=== PATIENT | male | born 1940 | race Hispanic/Latino ===

== ENCOUNTER 2018-11-11 15:28 | Inpatient (IN) | payer MEDICARE, OTHER ==
--- NOTE | 2018-11-11 15:35 | ED PDOC ---
Arrival/HPI - General Chief Complaint: Altered Mental Status Historian: Patient, Spouse, EMS - History of Present Illness Narrative History of Present Illness (Text): 11/11/18 15:36 78M w/ h/o CVA presenting to the Emergency Room with altered mental status for the 6 past hours. Per patient's , patient was last seen at baseline 2 hours prior when his noted he had difficulty with word findings and identifying specific family members. Due to his similar presentation prior, she immediately called EMS who brought him to the Emergency Room. PMD: Dr. Sindhu Rodriguez more complete history was unable to be performed due to the patient's clinical condition Past Medical History - Provider Review Nursing Documentation Reviewed: Yes - Travel History Have you recently traveled outside [place] w/in the past 3 mons?: No Family/Social History - Physician Review Nursing Documentation Reviewed: Yes Family/Social History: CVA/TIA Allergies/Home Meds Allergies/Adverse Reactions: Allergies No Known Allergies Allergy (Verified 11/11/18 15:29) Review of Systems - Physician Review All systems were reviewed & negative as marked: Yes - Review of Systems Systems not reviewed;Unavailable: Altered Mental Status Physical Exam Vital Signs Reviewed: Yes Temperature: Afebrile Blood Pressure: Normal Pulse: Regular Respiratory Rate: Normal Appearance: Positive for: Well-Appearing, Non-Toxic, Comfortable Mental Status: Positive for: Alert and Oriented X 3 Finger Stick Blood Glucose: 184 - Systems Exam Head: Present: Atraumatic, Normocephalic Pupils: Present: PERRL Extroacular Muscles: Present: EOMI Conjunctiva: Present: Normal Mouth: Present: Moist Mucous Membranes Neck: Present: Normal Range of Motion Respiratory/Chest: Present: Clear to Auscultation, Good Air Exchange. No: Respiratory Distress Cardiovascular: Present: Regular Rate and Rhythm, Normal S1, S2 Abdomen: Present: Normal Bowel Sounds. No: Tenderness Medical Decision Making ED Course and Treatment: 11/11/18 15:53 Impression 78M w/ h/o CVA presenting to the Emergency room with symptoms of word finding worrisome for CVA NIHSS: 1 tPA eligibility: No Plan --Labs --IV Fluids --Neurology Consult --CTH --EKG --CXR --Ativan --Reassess & disposition Progress Notes 11/11/18 15:59 Code Stroke called. Discussion of case with Dr. Berrios(neurology) who requests an update once CTH has been performed. 11/11/18 16:07 Patient noted to urinate on himself, blinking with minimal response to verbal commands. Ativan given. Patient noted to be diaphoretic and turning towards his right side. Keppra ordered. CTH negative for intracranial bleeding. Patient a 11/11/18 17:[address] Manley(medical service) for a second time. Patient noted to be more alert and responsive. 11/11/18 17:[address] Manley who accepts patient onto her service. - Lab Interpretations Lab Results: 11/11/18 15:57 11/11/18 15:57 Lab Results 11/11/18 15:57: Blood Type Pending, Antibody Screen Pending, BBK History Checked No verified bt 11/11/18 15:57: Sodium 138, Potassium 4.5, Chloride 104, Carbon Dioxide 27, Anion Gap 12, BUN 16, Creatinine 0.6 L, Est GFR ( Amer) > 60, Est GFR (Non-Af Amer) > 60, Random Glucose 112 H, Calcium 9.0, Total Bilirubin 0.7, AST 41, ALT 40, Alkaline Phosphatase 68, Troponin I 0.05, NT-Pro-B Natriuret Pep 1070 H, Total Protein 7.3, Albumin 4.1, Globulin 3.3, Albumin/Globulin Ratio 1.3, Triglycerides 80, Cholesterol 117 L, LDL Cholesterol Direct 81, HDL Cholesterol 27 L 11/11/18 15:57: PT 13.6 H, INR 1.23, APTT 30.8 11/11/18 15:57: WBC 8.2, RBC 5.24, Hgb 10.2 L, Hct 32.7 L, MCV 62.4 L, MCH 19.5 L, MCHC 31.2, RDW 16.5 H, Plt Count 188, Neut % (Auto) 73.7 H, Lymph % (Auto) 19.2 L, [place] % (Auto) 6.3 H, Eos % (Auto) 0.6 L, Baso % (Auto) 0.2, Lymph # (Auto) 1.6, [place] # (Auto) 0.5, Eos # (Auto) 0.1, Baso # (Auto) 0.02, Absolute Neuts (auto) 6.03 I have reviewed the lab results: Yes - RAD Interpretation Radiology Orders: 11/11/18 15:30 HEAD W/O (CODE STROKE) [CT] Stat HEAD W/O (CODE STROKE) [CT] Stat CHEST PORTABLE [RAD] Stat - Medication Orders Current Medication Orders: Sodium Chloride (Sodium Chloride 0.9%) 1,000 mls @ 100 mls/hr IV .Q10H REID rTPA Inclusion/Exclusion - Refusal of Treatment Patient Refused Treatment: No - Inclusion Criteria for Altepase All of the below criteria for inclusion were reviewed: Yes Patient is 18 years or Older: Yes The Clinical Diagnosis of Ischemic Stroke That is Causing a Potentially Disabling Neurological Deficit: No Time of Onset is Well Established to be Less Than 270 Minute Before Treatment Would Begin: No Risk/Benefit Discussed With Patient/Family Member Present: Yes NIHSS Stroke Scale 3 - Date/Time Evaluation Performed Date Performed: 11/11/18 Time Performed: 15:30 When Was NIHSS Performed: Baseline - How Severe is the Stroke Level of Consciousness: 0=Alert LOC to Questions: 0=Both comments correct LOC to commands: 0=Obeys both correctly Best Gaze: 0=Normal Visual: 0=No visual loss Facial: 0=Normal Motor Arm - Left: 0=No drift Motor Arm - Right: 0=No drift Motor Leg - Left: 0=No drift Motor Leg - Right: 0=No drift Limb Ataxia: 0=Absent Sensory: 0=Normal Best Language: 1=Mild to moderate aphasia Dysarthia: 0=Normal articulation Extinction & Inattention (Neglect): 0=Normal, no object Score: 1 Disposition/Present on Arrival - Disposition Referrals: Montse Manley MD [Primary Care Provider] - Follow up with primary Forms: [employer] (Croatian)
[2018-11-11 15:50] VITALS: BMI 37.4
--- NOTE | 2018-11-11 15:50 | CT ---
Date of service: 11/11/2018 PROCEDURE: CT HEAD WITHOUT CONTRAST. HISTORY: code stroke COMPARISON: None available. TECHNIQUE: Axial computed tomography images were obtained through the head/brain without intravenous contrast. Radiation dose: Total exam DLP = 962.22 mGy-cm. This CT exam was performed using one or more of the following dose reduction techniques: Automated exposure control, adjustment of the mA and/or kV according to patient size, and/or use of iterative reconstruction technique. FINDINGS: HEMORRHAGE: No intracranial hemorrhage. BRAIN: No mass effect or edema. Mild atrophy. Mild chronic microvascular changes. VENTRICLES: Unremarkable. No hydrocephalus. CALVARIUM: Unremarkable. PARANASAL SINUSES: Unremarkable as visualized. No significant inflammatory changes. MASTOID AIR CELLS: Unremarkable as visualized. No inflammatory changes. OTHER FINDINGS: None. IMPRESSION: No acute intracranial findings
[2018-11-11 16:03] LABS: BASO # 0.02 K/mm3 (0.0-2.0); BASO % 0.2 % (0.0-3.0); EOS # 0.1 (0.0-0.7); EOS % 0.6 % (1.5-5.0); HEMOGLOBIN 10.2 g/dL (14.0-18.0); LYMPH # 1.6 (1.2-3.4); LYMPH % 19.2 % (22.0-35.0); MEAN CELL VOLUME 62.4 fl (80.0-105.0); MEAN CORPUSCULAR HEMOGLOBIN 19.5 pg (25.0-35.0); MEAN CORPUSCULAR HGB CONC 31.2 g/dl (31.0-37.0); MONO # 0.5 (0.1-0.6); MONO % 6.3 % (1.0-6.0); PLATELET COUNT 188 10^3/uL (120.0-450.0); RBC 5.24 10^6/uL (3.5-6.1); RED CELL DISTRIBUTION WIDTH 16.5 % (11.5-14.5); WHITE BLOOD COUNT 8.2 10^3/uL (4.5-11.0)
[2018-11-11 16:09] LABS: ALB/GLOB RATIO 1.3 (1.1-1.8); ALBUMIN 4.1 g/dL (3.0-4.8); ALT/SGPT 40 U/L (7-56); AST/SGOT 41 U/L (17-59); BLOOD UREA NITROGEN 16 mg/dL (7-21); GFR NON-AFRICAN AMERICAN > 60; HDL CHOLESTEROL 27 mg/dL (29-60)
[2018-11-11] MEDS ORDERED: LEVETIRACETAM IVPB ONE (16:09)
[2018-11-11] MEDS ORDERED: SODIUM CHLORIDE 0.9% IVPB ONE (16:09)
[2018-11-11 16:19] LABS: INR 1.23; PARTIAL THROMBOPLASTIN TIME 30.8 Seconds (26.9-38.3); PROTHROMBIN TIME 13.6 SECONDS (9.4-12.5)
[2018-11-11 16:20] LABS: B-TYPE NATRIURETIC PEPTIDE 1070 pg/mL (0-450); LDL CHOLESTEROL 81 mg/dL (0-129); TROPONIN I 0.05 ng/mL
[2018-11-11] MEDS: Sodium Chloride 0.9% 1,000 ML IV SCH (16:23)
--- NOTE | 2018-11-11 16:46 | RAD ---
Date of service: 11/11/2018 HISTORY: Code Stroke COMPARISON: No prior. FINDINGS: LUNGS: No active pulmonary disease. PLEURA: No significant pleural effusion identified, no pneumothorax apparent. CARDIOVASCULAR: No atherosclerotic calcification present No radiographic findings to suggest acute or significant cardiovascular disease. Incidental Finding(s): Postoperative changes related to sternotomy. OSSEOUS STRUCTURES: No significant abnormalities. VISUALIZED UPPER ABDOMEN: Normal. OTHER FINDINGS: None. IMPRESSION: No active disease.
--- NOTE | 2018-11-11 19:30 | CARD ---
APPROVED REPORT Date of service: 11/11/2018 EKG Measurement Heart [id number] <Conclusion> Sinus bradycardia Left axis deviation Incomplete right bundle branch block Voltage criteria for left ventricular hypertrophy Abnormal ECG
[2018-11-12] MEDS: Sodium Chloride 0.9% 1,000 ML IV SCH ×3 (09:13→12:10)
[2018-11-12] MEDS: levETIRAcetam 500mg IVPB 500 MG/100 ML BAG IV SCH ×2 (09:15→22:19)
[2018-11-12 10:56] LABS: IRON 65 ug/dL (45-180)
[2018-11-12 11:05] LABS: % IRON SATURATION 23 % (20-55); TOTAL IRON BINDING CAPACITY 281 ug/dL (261-462)
[2018-11-12 17:32] LABS: FOLATE > 20.0 ng/mL
--- NOTE | 2018-11-13 00:18 | CP.PCM.CON ---
History of Present Illness - History of Present Illness History of Present Illness: Neurology consult dictated. In brief, Mr Siegel is a 78 yr old male who presented with a spell of confusion last night, and was not tpa candidate due to low NIH score and complete resolution of symptoms. His NIHSS is 0 now, with no other deficits save dementia. I believe he may have had a seizure. I will recommend IV depakote 1000 mg now and 500 mg IV bid. MRI Brain without nancy He can also obtain routine EEG. Thank you Dr. dexter Neurology Past Patient History - Past Social History Smoking Status: Smoker Currrent Status Unknown - CARDIAC Hx Cardiac Disorders: Yes Hx Hypertension: Yes - NEUROLOGICAL Hx Neurological Disorder: Yes HX Cerebrovascular Accident: Yes - MUSCULOSKELETAL/RHEUMATOLOGICAL Hx Falls: No - PSYCHIATRIC Hx Substance Use: Yes (Marijuana) - SURGICAL HISTORY Hx Surgeries: Yes Hx Musculoskeletal Surgery: Yes (right hip replacement) - ANESTHESIA Hx Anesthesia: Yes Hx Anesthesia Reactions: No Hx Malignant Hyperthermia: No Meds Allergies/Adverse Reactions: Allergies Allergy/AdvReac Type Severity Reaction Status Date / Time No Known Allergies Allergy Verified 11/11/18 15:29 - Medications Medications: Current Medications Famotidine (Pepcid) 40 mg PO HS [facility] Last Admin: 11/12/18 22:19 Dose: 40 mg Hydralazine HCl (Apresoline) 25 mg PO QID PRN PRN Reason: elevated blood pressure Sodium Chloride (Sodium Chloride 0.9%) 1,000 mls @ 100 mls/hr IV .Q10H [facility] Last Admin: 11/12/18 12:10 Dose: Not Given Levetiracetam (Keppra 500mg Ivpb) 500 mg in 100 mls @ 400 mls/hr IV Q12 [facility] Last Admin: 11/12/18 22:19 Dose: 400 mls/hr Results - Vital Signs Recent Vital Signs: Last Vital Signs Temp 98.2 F 11/12/18 17:42 Pulse 50 L 11/12/18 22:00 Resp 20 11/12/18 17:42 BP 159/87 H 11/12/18 17:42 Pulse Ox 98 11/12/18 06:00 - Labs Result Diagrams: 11/11/18 15:57 11/11/18 15:57 Labs: Laboratory Results - last 24 hr 11/12/18 11/12/18 11/12/18 10:30 10:30 13:34 POC Glucose (mg/dL) 201 H Iron 65 TIBC 281 % Saturation 23 Ferritin 100.0 Vitamin B12 676 Folate > 20.0 11/12/18 11/12/18 16:24 21:22 POC Glucose (mg/dL) 127 H 134 H Iron TIBC % Saturation Ferritin Vitamin B12 Folate
[2018-11-13] MEDS: Sodium Chloride 0.9% 1,000 ML IV SCH (06:34)
--- NOTE | 2018-11-13 08:54 | HP ---
DATE OF EXAM: 11/12/2018 CHIEF COMPLAINT: Altered mental status. HISTORY OF PRESENT ILLNESS: A 78-year-old male who came in with change in mental status. PAST MEDICAL HISTORY: He has a past medical history of CVA, hypertension, obesity, a seizure history, and chronic anemia. SOCIAL HISTORY: The patient lives with his at home. Denies smoking. Denies alcohol abuse. Tired. HOME MEDICATIONS: Home medications were reviewed by me. REVIEW OF SYSTEMS: I saw the patient today at bedside. He is alert. He denies chest pain, shortness of breath, abdominal pain, hematuria, hematochezia, fevers, or chills. He reports feeling lethargic. Denies dizziness. ALLERGIES: THE PATIENT HAS NO KNOWN ALLERGIES. PHYSICAL EXAMINATION VITAL SIGNS: Temperature 97.8, pulse rate 61, blood pressure 153/89, respiratory rate 20, saturating at 98% on nasal cannula. HEENT: Normocephalic and atraumatic. PERRLA. Mucous membranes moist. NECK: Supple. No thyromegaly. Normal inspection. RESPIRATORY: Clear to auscultation. No wheeze. No rhonchi. CARDIOVASCULAR: S1 and S2. No JVD. ABDOMEN: Soft and distended. No organomegaly. SKIN: Intact. EXTREMITIES: No edema. NEUROLOGIC: Alert and oriented x3. No cognitive deficits. Cranial nerves II through XII are intact. MEDICATIONS: The patient continues on Pepcid, Keppra 500 mg IV piggyback. LABORATORY DATA: On 11/11/2018; white blood cell 8.2, hemoglobin 10.2, hematocrit 32.7, and platelet count 188. Sodium 138, potassium 12.5, BUN 16, creatinine 0.6, GFR over 60, hemoglobin A1c is 6.1. BNP x7 days; triglycerides 80, cholesterol 117. Negative troponin x1. ASSESSMENT AND PLAN: This is a 78-year-old male who was seen in the office with altered mental status, has , hypertension, obesity, and chronic anemia. The patient continues on Pepcid, Keppra. The patient is continued on Keppra 500 mg by intravenous route, was seen Dr. Berrios, Neurologist. The patient continues on Keppra 500 mg intravenous piggyback. Blood pressure today 163/89 at 12 p.m., at 6 a.m. 131/70. We will consult Cardiology for fluctuation in blood pressure. We will order hydralazine 75 mg for blood pressure over 140/90. We will also order a Keppra level for a.m. We will followup. All above noted , agreed with route deliverer treatment , will f/u education done . will f/u Ricco Garcia APN Montse Manley MD HUY
[2018-11-13] MEDS: levETIRAcetam 500mg IVPB 500 MG/100 ML BAG IV SCH ×2 (10:06→21:19)
--- NOTE | 2018-11-13 10:49 | MRI ---
Date of service: 11/12/2018 PROCEDURE: MRI BRAIN WITHOUT CONTRAST HISTORY: stroke COMPARISON: None available. TECHNIQUE: Multiplanar, multisequence MR images of the brain were obtained without intravenous contrast enhancement. FINDINGS: HEMORRHAGE: None DWI: No evidence of an acute or early subacute infarction. BRAIN PARENCHYMA: No mass effect or edema. Minimal chronic microvascular changes. Mild atrophy. VENTRICLES: Unremarkable. No hydrocephalus. CRANIUM: Unremarkable. ORBITS: Grossly unremarkable. PARANASAL SINUSES/MASTOIDS: Mild mucosal thickening in the sphenoid and maxillary sinuses VASCULAR SYSTEM: Skull base flow voids intact. OTHER FINDINGS: The report concurs with the preliminary [facility] report IMPRESSION: Unremarkable non contrast enhanced MRI of the brain.
--- NOTE | 2018-11-13 12:20 | CP.PCM.PCO ---
Physician Communication Note - Physician Communication Note Physician Communication Note: PT eval pending
--- NOTE | 2018-11-13 13:03 | CP.PCM.PCO ---
Physician Communication Note - Physician Communication Note Physician Communication Note: cardiology consult pending
[2018-11-13] MEDS: Insulin Lispro (humaLOG) LOW Coverage SC SCH ×2 (17:34→22:00)
--- NOTE | 2018-11-13 18:21 | PCM.FALL ---
Post Fall Progress Note - Post Fall Exam Vital Sign: Temp Pulse Resp BP Pulse Ox 98.8 F 63 19 135/68 96 11/13/18 17:44 11/13/18 17:49 11/13/18 17:44 11/13/18 17:44 11/13/18 17:44
--- NOTE | 2018-11-13 21:53 | CON ---
DATE: 11/13/2018 CONSULT SERVICE: Cardiology. REASON FOR CONSULTATION: Altered mental status, cardiac evaluation, and history of aortic valve replacement. BRIEF CLINICAL HISTORY: This is a 78-year-old male brought here with altered mental status, is at the bedside. The patient denies any chest pain, shortness of breath, or any palpitations. PAST MEDICAL HISTORY: Significant for CVA, history of hypertension, history of aortic valve replacement bioprosthetic 12 years ago at [facility], obesity, seizure disorder, and history of chronic anemia. SOCIAL HISTORY: Denies any smoking. Denies any history of alcohol abuse. PAST SURGICAL HISTORY: Significant for aortic valve replacement, possible bioprosthetic. CURRENT MEDICATIONS: The patient is taking at home hydralazine, insulin, Keppra, Lexapro, and Pepcid. ALLERGIES: NO KNOWN DRUG ALLERGIES. REVIEW OF SYSTEMS: As per HPI. PHYSICAL EXAMINATION: GENERAL: Height of the patient 5 feet , weight of the patient 200 pounds, and body mass index 35.5 kg/m2. VITAL SIGNS: Temperature afebrile, heart rate 60, and blood pressure 135/68. HEENT: PERRLA. Extraocular muscles intact. NECK: Supple. No carotid bruits or thyromegaly. CHEST: Clear to auscultation. HEART: S1 and S2 regular. ABDOMEN: Soft. EXTREMITIES: Clubbing and cyanosis negative. LABORATORY DATA: Blood workup; WBC 8.2, hemoglobin , hematocrit 32.7, and platelet count 188. Chemistry shows sodium 130, potassium 4.5, chloride 104, CO2 of 26, anion gap of 12, BUN 16, and creatinine 0.6. Troponin 0.04 negative. IMPRESSION: A 78-year-old male with past medical history significant for aortic valve replacement, hypertension, hyperlipidemia, admitted with altered mental status, and history of aortic valve replacement. RECOMMENDATIONS: I will get echo, the patient has bradycardia. Cardiology consult was called. Family denies any chest pain, shortness of breath, any palpitations, though the patient is sometime often appears confused, is at the bedside gives all the information. Avoid beta-torie. Avoid rate limiting calcium channel torie. Resume back hydralazine. Continue insulin. We will get the lipid profile. We will get the TSH as well as echo to asses LV function. We will start Norvasc 10 mg daily and start first dose of Norvasc now and further recommendation depending upon the hospital course. We will change hydralazine to 10 mg q.i.d. for systolic more than 170 and we will start low dose of Norvasc and lisinopril and change hydralazine to 10 mg p.r.n. We will follow with you. Thank you Dr. Manley for providing us the opportunity in taking care of the patient, Perry Siegel. Zeb Alexander MD
[2018-11-14 05:53] VITALS: O2SAT 95
--- NOTE | 2018-11-14 07:47 | CP.PCM.PN ---
Subjective - Date & Time of Evaluation Date of Evaluation: 11/14/18 Time of Evaluation: 06:43 - Subjective Subjective: Awake, no distress Reason for consultation and follow up: Cardiac evaluation of bradycardia, history of aortic valve replacement, admitted for altered mental status, history of CVA, hypertension Seen and examined by me and Dr. Alexander Objective - Vital Signs/Intake and Output Vital Signs (last 24 hours): Temp Pulse Resp BP Pulse Ox 98.6 F 59 L 20 162/86 H 95 11/14/18 05:30 11/14/18 05:57 11/14/18 05:30 11/14/18 05:30 11/14/18 05:30 Intake and Output: 11/14/18 11/14/18 06:59 18:59 Intake Total 580 Output Total 2000 Balance -1420 - Medications Medications: Current Medications Amlodipine Besylate (Norvasc) 10 mg PO DAILY [facility] Escitalopram Oxalate (Lexapro) 20 mg PO BID [facility] Last Admin: 11/13/18 17:35 Dose: 20 mg Famotidine (Pepcid) 40 mg PO HS [facility] Last Admin: 11/13/18 21:20 Dose: 40 mg Hydralazine HCl (Apresoline) 10 mg PO QID PRN PRN Reason: for sbp >170 Levetiracetam (Keppra 500mg Ivpb) 500 mg in 100 mls @ 400 mls/hr IV Q12 [facility] Last Admin: 11/13/18 21:19 Dose: 400 mls/hr Insulin Human Lispro (Humalog Low) 0 units SC ACHS [facility]; Protocol Last Admin: 11/13/18 22:00 Dose: Not Given Lisinopril (Zestril) 10 mg PO DAILY [facility] - Labs Labs: 11/11/18 15:57 11/11/18 15:57 PT 13.6 SECONDS (9.4-12.5) H 11/11/18 15:57 INR 1.23 11/11/18 15:57 APTT 30.8 Seconds (26.9-38.3) 11/11/18 15:57 - Constitutional Appears: Non-toxic, No Acute Distress - Head Exam Head Exam: NORMAL INSPECTION, NORMOCEPHALIC - Eye Exam Eye Exam: Normal appearance Pupil Exam: NORMAL ACCOMODATION - ENT Exam ENT Exam: Mucous Membranes Moist, Normal Exam - Respiratory Exam Respiratory Exam: Decreased Breath Sounds, Clear to Ausculation Bilateral, NORMAL BREATHING PATTERN - Cardiovascular Exam Cardiovascular Exam: REGULAR RHYTHM, +S1, +S2 - GI/Abdominal Exam GI & Abdominal Exam: Soft, Normal Bowel Sounds - Extremities Exam Extremities Exam: Full ROM, Normal Capillary Refill - Neurological Exam Neurological Exam: Alert, Awake - Psychiatric Exam Psychiatric exam: Normal Affect, Normal Mood - Skin Skin Exam: Dry, Normal Color, Warm Assessment and Plan - Assessment and Plan (Free Text) Assessment: A 78 year old obese male who was brought to the ER due to altered mental status. He had difficulty with word findings and identifying family member. History aortic valve replacement, history of CVA,seizure, anemia, hypertension, hyperlipidemia. MRI and CT of brain done and showed no evidence of bleeding. EKG-sinus bradycardia.Neuro on consult. Started on Keppra. No cardiac work up done at [facility] [place]. Will order echo to evaluate LV function. On Lopressor at home. Hold betablocker. Stable. Plan: For echo to evaluate LV function No distress Heart rate bradycardia/normal sinus rhythm Blood pressure controlled Hold Lopressor On Norvasc 10 mg daily, Lisinopril 10 mg daily Keppra IV 500 mg every 12 hours Continue current management Neuro on consult Will follow up Plan and treatment discussed with Dr. Alexander
[2018-11-14] MEDS: Insulin Lispro (humaLOG) LOW Coverage SC SCH (10:26)
[2018-11-14] MEDS: levETIRAcetam 500mg IVPB 500 MG/100 ML BAG IV SCH (10:27)
--- NOTE | 2018-11-14 12:22 | CARD ---
APPROVED REPORT Date of service: 11/14/2018 EXAM: Two-dimensional and M-mode echocardiogram with Doppler and color Doppler. INDICATION S/P AVR, BRADYCARDIA 2D DIMENSIONS Left Atrium (2D)4.1 (1.6-4.0cm)IVSd1.4 (0.7-1.1cm) LVDd4.2 (3.9-5.9cm)PWd1.3 (0.7-1.1cm) LVDs2.8 (2.5-4.0cm)FS (%) 34.0 % LVEF (%)63.3 (>50%) M-Mode DIMENSIONS Aortic Root2.50 (2.2-3.7cm) Aortic Valve AoV Peak Obglajca290.0cm/sAoV VTI57.1cmAO Peak GR.24mmHg LVOT Peak Rrifqjoj099.0cm/sLVOT VTI24.60cmAO Mean GR.14mmHg Mitral Valve MV E Esoukdij33.3cm/sMV A Nuygjebv609.0cm/sE/A ratio0.8 TDI Lateral E' Peak V8.19cm/sMedial E' Peak V6.92cm/sE/Lateral E'11.8 E/Medial E'13.9 Pulmonary Valve PV Peak Bmnmzyxl41.6cm/sPV Peak Grad.3mmHg Tricuspid Valve TR Peak [id number]/sRAP [id number] Peak Gr.12mmHg [id number] LEFT VENTRICLE The left ventricle is normal size. There is mild concentric left ventricular hypertrophy. The left ventricular function is normal.EF-60-65% There is normal LV segmental wall motion. Transmitral Doppler flow pattern is Grade III-reversible restrictive diastolic dysfunction. No left ventricle thrombus noted on this study. There is no ventricular septal defect visualized. There is no left ventricular aneurysm. There is no mass noted in the left ventricle. RIGHT VENTRICLE The right ventricle is normal size. There is normal right ventricular wall thickness. The right ventricular systolic function is normal. ATRIA The left atrium is mildly dilated. The right atrium size is normal. The interatrial septum is intact with no evidence for an atrial septal defect. AORTIC VALVE There are no vegetations present on this prosthetic aortic valve. The prosthetic aortic valve appears normal. MITRAL VALVE The mitral valve is thickened but opens well. Mitral regurgitation is trace to mild. There is no mitral valve stenosis. There is no evidence of mitral valve prolapse. TRICUSPID VALVE The tricuspid valve leaflets are thickened , but open well. There is trace to mild tricuspid regurgitation.RVSP_22 mmof hg. There is no tricuspid valve stenosis. There is no tricuspid valve prolapse or vegetation. PULMONIC VALVE The pulmonary valve is normal in structure. There is trace pulmonic valvular regurgitation. There is no pulmonic valvular stenosis. GREAT VESSELS The aortic root is normal in size. The ascending aorta is normal in size. The pulmonary artery is normal. The IVC is normal in size and collapses >50% with inspiration. PERICARDIAL EFFUSION There is no pleural effusion. There is no pericardial effusion. <Conclusion> There are no vegetations present on this prosthetic aortic valve. The left ventricle is normal size. There is mild concentric left ventricular hypertrophy. There are no vegetations present on this prosthetic aortic valve. The prosthetic aortic valve appears normal. Mitral regurgitation is trace to mild. There is trace to mild tricuspid regurgitation.RVSP_22 mmof hg. The IVC is normal in size and collapses >50% with inspiration. There is no pericardial effusion.
[2018-11-14 12:25] VITALS: BP 151/87; PULSE 74; RESP 18; TEMP 98.3
--- NOTE | 2018-11-17 10:14 | PN ---
DATE: 11/13/2018 The patient was seen and examined at bedside, 11/13/2018. This progress note is for 11/13/2018. SUBJECTIVE: Looking comfortable. No fever. No chills. No hematuria. No hematochezia. No chest pain. No palpitation. Heart rate is low. Blood pressure is high, otherwise the patient is not a good historian. He do not remember what happened with him on the day of seizure. According to him, he do not have any history of seizures. PHYSICAL EXAMINATION: VITAL SIGNS: Blood pressure 157/74, pulse 59, respiratory rate 18 and temperature 98.3. HEENT: Head is normocephalic and atraumatic. Eyes, PERRLA. Extraocular muscles intact. Conjunctiva clear. Nose patent. Mucous membrane moist. NECK: Supple. No carotid bruits. No JVD. No thyromegaly. CHEST: Bilaterally symmetrical. HEART: S1 and S2, positive. LUNGS: Clear to auscultation. ABDOMEN: Soft. Bowel sounds present. No organomegaly. EXTREMITIES: No edema. No cyanosis. NEUROLOGIC: The patient is awake and alert. Follow simple commands. MEDICATIONS: Hydralazine p.r.n., Keppra and Pepcid. LABORATORY DATA: White blood cell 8.6, hemoglobin 10.2, hematocrit 32.7 and platelets 188. Glucose 143. Sodium 138, potassium 4.5, BUN 16, creatinine 0.6, BNP 1070, cholesterol 117, HDL 27, B12 676, and folate more than 20. ASSESSMENT AND PLAN: a 78-year-old male wit new onset seizures, rule out congestive heart failure, rule out anemia, came with new onset of seizures as per the patient's repeat CAT scan of the head reviewed by me. Did MRI of the head, report unremarkable noncontrast MRI of the brain. Electrocardiogram done noted by me. Chest x-ray done reviewed by me. Bradycardia and hypertension. The patient has history of cerebrovascular accident . Neurologist is on the case. Continue Pepcid and Keppra. Discussion done with nursing staff. We will order EEG, review Dr. Berrios's notes, continue Keppra. Waiting for cardiologic evaluation for bradycardia rule out arrhythmia. Gastrointestinal and deep venous thrombosis prophylaxis. Repeat labs. We will followup. Montse Manley MD HUY
== END 2018-11-14 14:20 | disposition home or self-care (01) | DRG 101 ==
LOC: ED 15:28 → ERH 17:28 → 2RSO 21:05
PROVIDERS: ADMIT Internal Medicine; ATTEND Internal Medicine
DX: G40.909 Epilepsy, unspecified, not intractable, without status epilepticus (principal); I10 Essential (primary) hypertension; R29.701 NIHSS score 1; R00.1 Bradycardia, unspecified; E78.5 Hyperlipidemia, unspecified; D64.9 Anemia, unspecified; E66.9 Obesity, unspecified; Z68.37 Body mass index [BMI] 37.0-37.9, adult; Z86.73 Personal history of transient ischemic attack (TIA), and cerebral infarction without residual deficits; Z95.3 Presence of xenogenic heart valve; Z96.641 Presence of right artificial hip joint